=== PATIENT | female | born 1980 | race Caucasian/White ===

== ENCOUNTER 2016-05-28 22:56 | Emergency (ER) | payer SELFPAY ==
--- NOTE | 2016-05-28 23:43 | ED Physician Chart ---
Chief Complaint/HPI - Patient Information Date Seen:: 05/28/16 Time Seen:: 23:20 Chief Complaint:: LOWER ABDOMEN PAIN History of Present Illness:: THIS IS A 36 YO FEMALE WITH THE ONSET TWO DAYS AGO OF A FULLNESS IN THE LOWER ABDOMEN AND PELVIC AREA. SHE DENIES AND VOMITING. SHE STATES THAT SHE FEELS BLOATED WITH FULLNESS IN THE RIGHT LOWER QUADRANT. SHE DENIES DIABETES AND NO HEART DISEASE. Allergies:: Allergies Allergy/AdvReac Type Severity Reaction Status Date / Time Penicillins [PCN] AdvReac Verified 01/10/16 13:52 Historian:: Patient Review:: Nurse's Note Reviewed Review of Systems - Review of Systems General/Constitutional: No fever, No chills, No weight loss, No weakness, No diaphoresis, No edema, No loss of appetite Skin: No skin lesions, No rash, No bruising Head: No headache, No light-headedness Eyes: No loss of vision, No pain, No diplopia ENT: No earache, No nasal drainage, No sore throat, No tinnitus Neck: No neck pain, No swelling, No thyromegaly, No stiffness, No mass noted Cardio Vascular: No chest pain, No palpitations, No PND, No orthopnea, No edema Pulmonary: No SOB, No cough, No sputum, No wheezing GI: No nausea, No vomiting, No diarrhea, No pain, No melena, No hematochezia, No constipation, No hematemesis G/U: No dysuria, No frequency, No hematuria Musculoskeletal: No bone or joint pain, No back pain, No muscle pain Endocrine: No polyuria, No polydipsia Psychiatric: No prior psych history, No depression, No anxiety, No suicidal ideation Hematopoietic: No bruising, No lymphadenopathy Allergic/Immuno: No urticaria, No angioedema Neurological: No syncope, No focal symptoms, No weakness, No paresthesia, No headache, No seizure, No dizziness, No confusion, No vertigo Past Medical History - Past Medical History Obtainable: Yes Past Medical History: No significant medical hx Family History: None Social History: Non Smoker, No Alcohol, No Drug Use Surgical History: None Psychiatricy History: None Medication: Reviewed Family Medical History - Family Member Mother History Unknown: Yes Ethnicity: Living Status: Still Living Hx Family Cancer: Yes (BREAST CA) Hx Family Coronary Artery Disease: No Hx Family Congestive Heart Failure: No Hx Family Hypertension: No Hx Family Stroke: No Hx Family Diabetes: Yes Hx Family Seizures: No Hx Family Dementia: No Hx Family AIDS: No Hx Family HIV: No Hx Family COPD: No Hx Family Hepatitis: No Hx Family Psychiatric Problems: No Hx Family Tuberculosis: No Physical Exam - Physical Examination GI: No tenderness/rebounding/guarding (LOWER ABDOMEN TENDERNESS) Labs/Radiology/EKG Results - Lab Results Results: Abnormal Lab Results 05/28/16 05/28/16 05/28/16 23:35 23:35 23:48 WBC 8.5 RBC 4.66 Hgb 14.7 Hct 44.3 MCV 95.1 MCH 31.6 H MCHC Differential 33.3 RDW 11.8 Plt Count 242 MPV 8.0 Neutrophils % 53.4 Lymphocytes % 38.4 Monocytes % 7.1 Eosinophils % 0.8 Basophils % 0.3 PT INR PTT (Actin FS) Sodium Potassium Chloride Carbon Dioxide Anion Gap BUN Creatinine Est GFR ( Amer) Est GFR (Non-Af Amer) BUN/Creatinine Ratio Glucose Calcium Total Bilirubin AST ALT Alkaline Phosphatase Troponin I Total Protein Albumin Globulin Albumin/Globulin Ratio TSH Urine Source CLEAN C Urine Color YELLOW Urine Clarity CLEAR Urine pH 6.5 Ur Specific Horatio 1.020 Urine Protein NEGATIVE Urine Glucose (UA) NEGATIVE Urine Ketones NEGATIVE Urine Blood NEGATIVE Urine Nitrate NEGATIVE Urine Bilirubin NEGATIVE Urine Urobilinogen 0.2 Ur Leukocyte Esterase NEGATIVE Urine RBC NONE SEEN Urine WBC NONE SEEN Ur Epithelial Cells NONE SEEN Urine Bacteria NONE SEEN Urine Test NEGATIVE 05/28/16 05/28/16 05/28/16 23:48 23:48 23:48 WBC RBC Hgb Hct MCV MCH MCHC Differential RDW Plt Count MPV Neutrophils % Lymphocytes % Monocytes % Eosinophils % Basophils % PT 9.2 L INR 0.93 PTT (Actin FS) 24.5 L Sodium 135 L Potassium 3.0 L Chloride 106 Carbon Dioxide 25.6 Anion Gap 6.4 L BUN 11 Creatinine 0.7 Est GFR ( Amer) > 60.0 Est GFR (Non-Af Amer) > 60.0 BUN/Creatinine Ratio 15.7 Glucose 109 H Calcium 9.6 Total Bilirubin 0.3 AST 18 ALT 16 Alkaline Phosphatase 42 Troponin I < 0.01 L Total Protein 7.6 Albumin 4.3 Globulin 3.3 Albumin/Globulin Ratio 1.3 TSH Urine Source Urine Color Urine Clarity Urine pH Ur Specific Horatio Urine Protein Urine Glucose (UA) Urine Ketones Urine Blood Urine Nitrate Urine Bilirubin Urine Urobilinogen Ur Leukocyte Esterase Urine RBC Urine WBC Ur Epithelial Cells Urine Bacteria Urine Test 05/28/16 23:48 WBC RBC Hgb Hct MCV MCH MCHC Differential RDW Plt Count MPV Neutrophils % Lymphocytes % Monocytes % Eosinophils % Basophils % PT INR PTT (Actin FS) Sodium Potassium Chloride Carbon Dioxide Anion Gap BUN Creatinine Est GFR ( Amer) Est GFR (Non-Af Amer) BUN/Creatinine Ratio Glucose Calcium Total Bilirubin AST ALT Alkaline Phosphatase Troponin I Total Protein Albumin Globulin Albumin/Globulin Ratio TSH 4.30 Urine Source Urine Color Urine Clarity Urine pH Ur Specific Horatio Urine Protein Urine Glucose (UA) Urine Ketones Urine Blood Urine Nitrate Urine Bilirubin Urine Urobilinogen Ur Leukocyte Esterase Urine RBC Urine WBC Ur Epithelial Cells Urine Bacteria Urine Test - Radiology Results Results: CT SCAN OF THE ABDOMEN = FREE FLUID AND OVARIAN FOLLICLE. ED Septic Shock - . Is Septic Shock (SBP<90, OR Lactate>4 mmol\L) present?: No Reassessment (Disposition) - Reassessment Reassessment Condition:: Unchanged - Diagnosis Diagnosis:: PELVIC PAIN HYPOKALIMIA - Aftercare/Follow up Instructions Aftercare/Follow-Up Instructions:: Counseled pt regarding lab results/diagnosis & need follow up, Refer to Discharge Instructions, Counseled pt & family regarding lab results/diagnosis & need follow up - Patient Disposition Discharge/Transfer:: Home Condition at Disposition:: Unchanged ED Discharge Plan - Patient Disposition Admit/Discharge/Transfer: PT DISCHARGED HOME Condition at Disposition: Unchanged
[2016-05-29 00:12] LABS: % BASOPHILS 0.3 % (0.0-2.0); % EOSINOPHILS 0.8 % (0.0-5.0); % LYMPHOCYTES 38.4 % (20.0-50.0); % MONOCYTES 7.1 % (2.0-10.0); % NEUTROPHILS 53.4 % (40.0-80.0); HEMATOCRIT 44.3 % (35.0-45.0); HEMOGLOBIN 14.7 gm/dL (11.7-15.5); MEAN CELL VOLUME 95.1 fl (81-100); MEAN CORPUSCULAR HEMOGLOBIN 31.6 pg (27.0-31.0); MEAN CORPUSCULAR HGB CONC 33.3 pg (28.0-36.0); NEUTROPHILE ABSOLUTE 4.5 Th/cmm (1.8-8.0); PLATELET COUNT 242 Th/cmm (150-400); RED BLOOD COUNT 4.66 Mil/cmm (3.80-5.10); RED CELL DISTRIBUTION WIDTH 11.8 % (11.5-20.0); WHITE BLOOD COUNT 8.5 Th/cmm (4.8-10.8)
[2016-05-29 00:27] LABS: CARBON DIOXIDE 25.6 mEq/L (21.0-31.0); CHLORIDE 106 mEq/L (98-107); SODIUM SERUM 135 mEq/L (136-145)
[2016-05-29 00:27] LABS: URINE BILIRUBIN NEGATIVE (NEGATIVE); URINE COLOR YELLOW; URINE GLUCOSE (UA) NEGATIVE (NEGATIVE)
[2016-05-29 00:28] LABS: ALB/GLOB RATIO 1.3 (1.0-1.8); ALKALINE PHOSPHATASE 42 U/L (34-104); ANION GAP 6.4 (7.0-16.0); BILIRUBIN,TOTAL 0.3 mg/dL (0.3-1.0); BUN - UREA NITROGEN 11 mg/dL (7-25); BUN/CREATININE RATIO 15.7; CALCIUM SERUM 9.6 mg/dL (8.6-10.3); CREATININE - SERUM 0.7 mg/dL (0.6-1.2); GLUCOSE 109 mg/dL (70-105); SGOT 18 U/L (13-39); SGPT/ALT 16 U/L (7-52)
[2016-05-29 00:28] LABS: URINE BLOOD NEGATIVE (NEGATIVE); URINE KETONE NEGATIVE (NEGATIVE); URINE PH 6.5
[2016-05-29 00:29] LABS: URINE PROTEIN NEGATIVE (NEGATIVE); URINE UROBILINOGEN 0.2 E.U./dL (0.2 - 1.0)
[2016-05-29 00:30] LABS: URINE BACTERIA NONE SEEN /hpf (NONE SEEN); URINE EPITHELIAL CELLS NONE SEEN /lpf (FEW); URINE RBC NONE SEEN /hpf (0-5); URINE WBC NONE SEEN /hpf (0-5)
[2016-05-29] MEDS ORDERED: Potassium Chloride 20 mEq ER Tab PO ONE (01:09)
[2016-05-29 01:25] LABS: INR 0.93 (0.5-1.4); PROTHROMBIN TIME (TEST) 9.2 SECONDS (9.5-11.5)
[2016-05-29] MEDS ORDERED: Potassium Chloride Elixir 20 mEq /15 mL UDC ONE (01:28)
--- NOTE | 2016-05-29 10:45 | Diagnostic Imaging Report ---
CT scan of the abdomen and pelvis without intravenous contrast History: Mass Total DLP equals 436 CTDI equals 9.5 Axial sections were obtained from the xiphoid process down to the pubic symphysis. The liver demonstrates a normal size and contour. No focal lesions are seen. The spleen appears normal. No abnormalities are seen in the region of the pancreas. The kidneys appear normal bilaterally. The exam of the pelvis demonstrates preservation of normal fat planes. 1.0 cm hypodensity seen in the right adnexal region most likely related to ovarian cystic change. No other abnormal masses. No abnormal fluid collections are IMPRESSION: 1. 1.0 cm hypodensity within the right adnexal region most likely related to ovarian cystic change 2. No other significant abnormalities. Specifically, no other abnormal masses identified within the abdomen or pelvis
== END 2016-05-29 02:30 | disposition home or self-care (01) ==
LOC: ER 22:56
DX: R10.2 Pelvic and perineal pain (principal); E87.6 Hypokalemia; Z88.0 Allergy status to penicillin
CPT/HCPCS: 36415-UA; 80053-TC; 81001-TC; 81025-TC; 84443-TC; 84484-TC; 85025-TC; 85610-TC; 85730-TC

== ENCOUNTER 2017-02-03 02:59 | Emergency (ER) | payer MEDICAID ==
--- NOTE | 2017-02-03 04:43 | ED Physician Chart ---
ED Chief Complaint/HPI - Patient Information Date Seen:: 02/03/17 Time Seen:: 03:10 Chief Complaint:: Right Shoulder Pain History of Present Illness:: onset x 18 months of chronic right shoulder pain due to an old injury who ran out of pain medication with reoccurrence of pain x 3 days; no new/recent trauma ; pt is scheduled to have Right Shoulder Surgery; no H/As, neck pain, C/P, SOB, Abd. Pain, A/N/V/D/C, fever, chills, or urinary s/s; pt denies Allergies:: Allergies Allergy/AdvReac Type Severity Reaction Status Date / Time Penicillins [PCN] AdvReac Verified 02/03/17 03:15 Vitals:: Vital Signs - 8 hr 02/03/17 02/03/17 03:05 03:45 Temp 98.2 F 98.6 F HR 71 70 RR 18 18 BP 128/76 126/78 O2 Sat % 96 97 Historian:: Patient, Family Member Review:: Nurse's Note Reviewed ED Review of Systems - Review of Systems General/Constitutional: No fever, No chills, No weight loss, No weakness, No diaphoresis, No edema, No loss of appetite Skin: No skin lesions, No rash, No bruising Head: No headache, No light-headedness Eyes: No loss of vision, No pain, No diplopia ENT: No earache, No nasal drainage, No sore throat, No tinnitus Neck: No neck pain, No swelling, No thyromegaly, No stiffness, No mass noted Cardio Vascular: No chest pain, No palpitations, No PND, No orthopnea, No edema Pulmonary: No SOB, No cough, No sputum, No wheezing GI: No nausea, No vomiting, No diarrhea, No pain, No melena, No hematochezia, No constipation, No hematemesis G/U: No dysuria, No frequency, No hematuria Fundraising Coordinator: No vaginal discharge, No abnormal vaginal bleed, No contraction Musculoskeletal: Bone or joint pain, No back pain, Muscle pain Endocrine: No polyuria, No polydipsia Psychiatric: No prior psych history, No depression, No anxiety, No suicidal ideation Hematopoietic: No bruising, No lymphadenopathy Allergic/Immuno: No urticaria, No angioedema Neurological: No syncope, No focal symptoms, No weakness, No paresthesia, No headache, No seizure, No dizziness, No confusion, No vertigo ED Past Medical History - Past Medical History Obtainable: Yes Past Medical History: No significant medical hx Family History: HTN Social History: No Alcohol, No Drug Use, Surgical History: None Psychiatricy History: None Medication: Reviewed Family Medical History - Family Member Mother History Unknown: Yes Ethnicity: Living Status: Still Living Hx Family Cancer: Yes (BREAST CA) Hx Family Coronary Artery Disease: No Hx Family Congestive Heart Failure: No Hx Family Hypertension: No Hx Family Stroke: No Hx Family Diabetes: Yes Hx Family Seizures: No Hx Family Dementia: No Hx Family AIDS: No Hx Family HIV: No Hx Family COPD: No Hx Family Hepatitis: No Hx Family Psychiatric Problems: No Hx Family Tuberculosis: No ED Physical Exam - Physical Examination General/Constitutional: Awake, Well-developed, well-nourished, Alert, No distress, GCS 15, Non-toxic appearing, Ambulatory Head: Atraumatic Eyes: Lids, conjuctiva normal, PERRL, EOMI Skin: Nl inspection, No rash, No skin lesions, No ecchymosis, Well hydrated, No lymphadenopathy ENMT: External ears, nose nl, Nasal exam nl, Lips, teeth, gums nl Neck: Nontender, Full ROM w/o pain, No JVD, No nuchal rigidity, No bruit, No mass, No stridor Respiratory: Nl effort/Exclusion, Clear to Auscultation, No Wheeze/Rhonchi/Rales Cardio Vascular: RRR, No murmur, gallop, rubs, NL S1 S2 GI: No tenderness/rebounding/guarding, No organomegaly, No hernia, Normal BS's, Nondistended, No mass/bruits, No McBurney tenderness : No CVA tenderness Extremities: No tenderness or effusion, Full ROM, normal strength in all extremities, No edema, Normal digits & nails Other Extremities comments:: + Right Shoulder Tenderness upon PROMs; Full active ROMs; no dislocations; no deformities; no loss of ROMs; no ligament instability; no cellulitis; no FBs; good motor, tendon, and sensory functions; good NV functions Neuro/Psych: Alert/oriented, DTR's symmetric, Normal sensory exam, Normal motor strength, Judgement/insight normal, Mood normal, Normal gait, No focal deficits Misc: Normal back, No paraspinal tenderness ED Septic Shock - . Is Septic Shock (SBP<90, OR Lactate>4 mmol\L) present?: No - <6hrs of presentation: Vital Signs: Vital Signs - 8 hr 02/03/17 02/03/17 03:05 03:45 Temp 98.2 F 98.6 F HR 71 70 RR 18 18 BP 128/76 126/78 O2 Sat % 96 97 ED Reassessment (Disposition) - Reassessment Reassessment:: pt is aymptomatic upon discharge Reassessment Condition:: Improved - Diagnosis Diagnosis:: Right Shoulder Pain; Right Shoulder Sprain; Chronic Sprains and Strains - Aftercare/Follow up Instructions Aftercare/Follow-Up Instructions:: Counseled pt regarding lab results/diagnosis & need follow up, Refer to Discharge Instructions, Counseled pt & family regarding lab results/diagnosis & need follow up Medication Prescribed:: Rx: Tylenol #3: one tablet po tid prn pain (#10); Wear Sling to Right Arm; Take medication as prescibed - Patient Disposition Discharge/Transfer:: Home Condition at Disposition:: Stable, Improved (RTER prn if existing s/s reoccur and/or get worse and/or any other new s/s occur; ACIs given for all Dx; Refer to Orthopedist LACI; F/U with PMD in one day or prn; RTER prn if concerned) ED Discharge Plan - Patient Disposition Admit/Discharge/Transfer: PT DISCHARGED HOME Condition at Disposition: Improved Instructions: Shoulder Pain Additional Instructions: FILL PRESCRIPTION AND FOLLOW UP WITH REGULAR MD. ACTIVITY TOLERATED
== END 2017-02-03 04:01 | disposition home or self-care (01) ==
LOC: ER 02:59
DX: S43.401A Unspecified sprain of right shoulder joint, initial encounter (principal); G89.29 Other chronic pain; X58.XXXA Exposure to other specified factors, initial encounter; Y93.89 Activity, other specified; Y92.89 Other specified places as the place of occurrence of the external cause; Y99.8 Other external cause status

== ENCOUNTER 2017-06-01 13:25 | Emergency (ER) | payer MEDICAID ==
--- NOTE | 2017-06-01 14:14 | ED Physician Chart ---
ED Chief Complaint/HPI - Patient Information Date Seen:: 06/01/17 Time Seen:: 14:00 Chief Complaint:: abdominal distress History of Present Illness:: Patient's had abdominal distention for the last 2-1/2 days. Eat yesterday from 4 to 7 AM she vomited 5 times. She has had increased eructation. She has diffuse stabbing abdominal pain worse in the epigastrium. She has in the past had abdominal distention. Allergies:: Allergies Allergy/AdvReac Type Severity Reaction Status Date / Time Penicillins [PCN] AdvReac Verified 02/03/17 03:15 Historian:: Patient Review:: Nurse's Note Reviewed ED Review of Systems - Review of Systems General/Constitutional: No fever, No chills Skin: No skin lesions Head: No headache Eyes: No loss of vision ENT: No earache Neck: No neck pain, No swelling Cardio Vascular: No chest pain, No palpitations Pulmonary: No SOB GI: Nausea, Vomiting, No diarrhea, Pain Musculoskeletal: No bone or joint pain Endocrine: No polyuria Psychiatric: No prior psych history Hematopoietic: No bruising Allergic/Immuno: No urticaria Neurological: No syncope, No focal symptoms ED Past Medical History - Past Medical History Past Medical History: No significant medical hx Family History: Heart disease, Diabetes Melitus, HTN Social History: Other (smokes and drinks alcohol occasionally) Surgical History: other (exploratory laparotomy) Psychiatricy History: None Medication: None Family Medical History - Family Member Mother History Unknown: Yes Ethnicity: Living Status: Still Living Hx Family Cancer: Yes (BREAST CA) Hx Family Coronary Artery Disease: No Hx Family Congestive Heart Failure: No Hx Family Hypertension: No Hx Family Stroke: No Hx Family Diabetes: Yes Hx Family Seizures: No Hx Family Dementia: No Hx Family AIDS: No Hx Family HIV: No Hx Family COPD: No Hx Family Hepatitis: No Hx Family Psychiatric Problems: No Hx Family Tuberculosis: No ED Physical Exam - Physical Examination General/Constitutional: Well-developed, well-nourished Head: Atraumatic Eyes: Lids, conjuctiva normal, PERRL Skin: Nl inspection, No rash, No skin lesions, No ecchymosis, Well hydrated, No lymphadenopathy ENMT: External ears, nose nl, TM canals nl, Nasal exam nl, Lips, teeth, gums nl , Oropharynx nl, Tonsils nl Neck: No nuchal rigidity Respiratory: Nl effort/Exclusion, Clear to Auscultation, No Wheeze/Rhonchi/Rales Cardio Vascular: RRR, No murmur, gallop, rubs, NL S1 S2 GI: No organomegaly, No hernia, Normal BS's, No mass/bruits, No McBurney tenderness Other GI comments:: Upper abdominal tenderness Extremities: No edema Neuro/Psych: No focal deficits Misc: No paraspinal tenderness ED Labs/Radiology/EKG Results - Lab Results Results: Laboratory Results - last 24 hr 06/01/17 06/01/17 06/01/17 14:15 14:15 14:45 WBC 6.2 D RBC 4.49 Hgb 14.6 Hct 43.4 MCV 96.6 MCH 32.4 H MCHC Differential 33.6 RDW 12.2 Plt Count 253 MPV 8.0 Neutrophils % 67.8 Lymphocytes % 23.7 Monocytes % 7.9 Eosinophils % 0.5 Basophils % 0.1 Sodium 138 Potassium 3.4 L Chloride 104 Carbon Dioxide 29.8 Anion Gap 7.6 BUN 8 Creatinine 0.6 Est GFR ( Amer) > 60.0 Est GFR (Non-Af Amer) > 60.0 BUN/Creatinine Ratio 13.3 Glucose 94 Calcium 9.2 Magnesium 2.1 Urine Source MIDSTREAM Urine Color YELLOW Urine Clarity CLEAR Urine pH 7.5 Ur Specific Valentine 1.015 Urine Protein TRACE Urine Glucose (UA) NEGATIVE Urine Ketones TRACE Urine Blood NEGATIVE Urine Nitrate NEGATIVE Urine Bilirubin NEGATIVE Urine Urobilinogen 0.2 Ur Leukocyte Esterase NEGATIVE Urine RBC NONE SEEN Urine WBC 0-2 Ur Epithelial Cells MODERATE Urine Bacteria NONE SEEN Urine Test 06/01/17 14:45 WBC RBC Hgb Hct MCV MCH MCHC Differential RDW Plt Count MPV Neutrophils % Lymphocytes % Monocytes % Eosinophils % Basophils % Sodium Potassium Chloride Carbon Dioxide Anion Gap BUN Creatinine Est GFR ( Amer) Est GFR (Non-Af Amer) BUN/Creatinine Ratio Glucose Calcium Magnesium Urine Source Urine Color Urine Clarity Urine pH Ur Specific Valentine Urine Protein Urine Glucose (UA) Urine Ketones Urine Blood Urine Nitrate Urine Bilirubin Urine Urobilinogen Ur Leukocyte Esterase Urine RBC Urine WBC Ur Epithelial Cells Urine Bacteria Urine Test NEGATIVE - Radiology Results Results: Ultrasound demonstrated increased gas only ED Assessment - Assessment General Assessment: Patient instructed to drink extra orange juice and eat extra bananas for her hypokalemia ED Septic Shock - . Is Septic Shock (SBP<90, OR Lactate>4 mmol\L) present?: No ED Reassessment (Disposition) - Diagnosis Diagnosis:: Hypokalemia; gastritis - Aftercare/Follow up Instructions Aftercare/Follow-Up Instructions:: Refer to Discharge Instructions - Patient Disposition Discharge/Transfer:: Home Condition at Disposition:: Stable, Unchanged
[2017-06-01 14:22] LABS: % BASOPHILS 0.1 % (0.0-2.0); % EOSINOPHILS 0.5 % (0.0-5.0); % LYMPHOCYTES 23.7 % (20.0-50.0); % MONOCYTES 7.9 % (2.0-10.0); % NEUTROPHILS 67.8 % (40.0-80.0); HEMATOCRIT 43.4 % (41.0-60); HEMOGLOBIN 14.6 gm/dL (12-16); LYMPHOCYTE ABSOLUTE 1.5 Th/cmm (1.5-3.0); MEAN CELL VOLUME 96.6 fl (81-100); MEAN CORPUSCULAR HEMOGLOBIN 32.4 pg (27.0-31.0); MEAN CORPUSCULAR HGB CONC 33.6 pg (28.0-36.0); MONOCYTE ABSOLUTE 0.5 Th/cmm (0.3-1.0); NEUTROPHILE ABSOLUTE 4.2 Th/cmm (1.8-8.0); PLATELET COUNT 253 Th/cmm (150-400); RED BLOOD COUNT 4.49 Mil/cmm (3.80-5.10); RED CELL DISTRIBUTION WIDTH 12.2 % (11.5-20.0)
[2017-06-01 14:34] LABS: ANION GAP 7.6 (7.0-16.0); BUN - UREA NITROGEN 8 mg/dL (7-25); CALCIUM SERUM 9.2 mg/dL (8.6-10.3); CARBON DIOXIDE 29.8 mEq/L (21.0-31.0); CHLORIDE 104 mEq/L (98-107); CREATININE - SERUM 0.6 mg/dL (0.6-1.2); GFR AFRICAN-AMERICAN > 60.0 ml/min (>90); GFR NON AFRICAN-AMERICAN > 60.0 ml/min; GLUCOSE 94 mg/dL (70-105); MAGNESIUM 2.1 mg/dL (1.9-2.7); POTASSIUM SERUM 3.4 mEq/L (3.5-5.1); SODIUM SERUM 138 mEq/L (136-145)
[2017-06-01 14:46] LABS: WHITE BLOOD COUNT 6.2 Th/cmm (4.8-10.8)
[2017-06-01 14:53] LABS: URINE BILIRUBIN NEGATIVE (NEGATIVE); URINE BLOOD NEGATIVE (NEGATIVE); URINE GLUCOSE (UA) NEGATIVE (NEGATIVE); URINE KETONE TRACE mg/dL (NEGATIVE); URINE LEUKOCYTE ESTERASE NEGATIVE (NEGATIVE); URINE MICROSCOPIC INDICATED? YES; URINE NITRATE NEGATIVE (NEGATIVE); URINE PH 7.5 (4.6 - 8.0); URINE PROTEIN TRACE mg/dL (NEGATIVE); URINE SOURCE MIDSTREAM; URINE UROBILINOGEN 0.2 E.U./dL (0.2 - 1.0)
[2017-06-01 15:03] LABS: URINE CLARITY CLEAR (CLEAR); URINE COLOR YELLOW
[2017-06-01 15:26] LABS: URINE BACTERIA NONE SEEN /hpf (NONE SEEN); URINE EPITHELIAL CELLS MODERATE /lpf (FEW); URINE RBC NONE SEEN /hpf (0-5); URINE WBC 0-2 /hpf (0-5)
[2017-06-01] MEDS ORDERED: Potassium Chloride 20 mEq ER Tab PO ONE (16:08)
[2017-06-01] MEDS ORDERED: Potassium Chloride Elixir 20 mEq /15 mL UDC ONE (16:10)
--- NOTE | 2017-06-02 08:54 | Diagnostic Imaging Report ---
Ultrasound abdomen HISTORY: Abdominal pain COMPARISON: CT abdomen and pelvis dated to 417 Technique: Sonography of the abdomen was performed in multiple planes. FINDINGS: Exam is limited due to bowel gas. The liver demonstrates normal echogenicity with no evidence of focal lesions. The liver measures 18.6 cm. No evidence of gallstones or gallbladder wall thickening. The common bile duct measures 2 mm. Evaluation of the pancreas is limited due to bowel gas. The right kidney measures 11.1 x 4.2 cm. No evidence of focal lesions or hydronephrosis. The left kidney measures 10.9 x 5.4 cm. No evidence of focal lesions or hydronephrosis. The spleen measures 8.7 cm. The visualized portions of abdominal aorta are within normal limits in size. IMPRESSION: No evidence of gallstones. No evidence of hydronephrosis. Mild hepatomegaly.
== END 2017-06-01 16:15 | disposition home or self-care (01) ==
LOC: ER 13:25
DX: K29.70 Gastritis, unspecified, without bleeding (principal); E87.6 Hypokalemia
CPT/HCPCS: 36415-UA; 76700-TC; 80048-TC; 81001-TC; 81025-TC; 83735-TC; 85025-TC